=== PATIENT | male | born 1955 | race Caucasian/White ===

== ENCOUNTER 2017-10-09 18:30 | Emergency (ER) | payer SELFPAY ==
[~2017-10-09] VITALS: Ht 185.4 cm; Wt 97.5 kg
[2017-10-09 18:31] VITALS: BP 82/51
== END 2017-10-09 18:53 ==
LOC: ER 18:40
DX: S01.01XA Laceration without foreign body of scalp, initial encounter (principal); W19.XXXA Unspecified fall, initial encounter; Y93.89 Activity, other specified; Y99.8 Other external cause status; Y92.89 Other specified places as the place of occurrence of the external cause

== ENCOUNTER 2022-01-11 23:34 | Emergency (ER) | payer MEDICARE, OTHER ==
[~2022-01-11] VITALS: Ht 185.4 cm; Wt 104.3 kg
[2022-01-12] MEDS ORDERED: DexAMETHasone SOD PHOS 10MG/1ML VIAL INJ IV ONE (04:30)
[2022-01-12] MEDS ORDERED: KETOROLAC TROMETH 30 MG/ML 1ML VIAL IV ONE (04:30)
[2022-01-12] MEDS ORDERED: MORPHINE SULFATE 4 MG/ML SYR/VIAL IV ONE (04:30)
[2022-01-12] MEDS ORDERED: HYDR-4798 PO (06:00)
[2022-01-12 06:30] VITALS: BP 115/85
== END 2022-01-12 06:37 | disposition home or self-care (01) ==
LOC: EDBD 23:34 → EDSEX 23:34 → ER 23:34
DX: M54.50 Low back pain, unspecified (principal)
CPT/HCPCS: 96374; 96375; 99285; J1100; J1885; J2270

== ENCOUNTER 2023-04-10 20:34 | Emergency (ER) | payer MEDICARE ==
[~2023-04-10] VITALS: Ht 185.4 cm; Wt 101.8 kg
[~2023-04-10 20:34] MED LIST: HYDR-4798 PO
[2023-04-10 20:48] VITALS: BP 143/99; PULSE 83; RESP 18; O2SAT 93
== END 2023-04-11 02:53 | disposition left against medical advice (07) ==
LOC: ER 20:36
DX: S61.214A Laceration without foreign body of right ring finger without damage to nail, initial encounter (principal); Z53.21 Procedure and treatment not carried out due to patient leaving prior to being seen by health care provider; W26.8XXA Contact with other sharp object(s), not elsewhere classified, initial encounter; Y93.89 Activity, other specified; Y92.89 Other specified places as the place of occurrence of the external cause; Y99.8 Other external cause status